=== PATIENT | female | born 1985 | race Caucasian/White ===

== ENCOUNTER 2023-02-10 21:14 | Emergency (ER) | payer BC ==
[2023-02-10 21:42] VITALS: BP 140/97; PULSE 57
[2023-02-10] MEDS ORDERED: diphenhydrAMINE 50 MG/ML SDV IVPUSH ONE (21:48)
[2023-02-10] MEDS ORDERED: Ondansetron 4 MG/2 ML SDV IVPUSH ONE (21:48)
[2023-02-10] MEDS ORDERED: Lactated Ringers 1,000 ML IV SCH (22:00)
[2023-02-10] MEDS ORDERED: Lactated Ringers 1,000 ML IV ONE (22:13)
[2023-02-10] MEDS ORDERED: Ketorolac 30 MG/ML SDV IVPUSH ONE (23:59)
[2023-02-11] MEDS ORDERED: Potassium Chloride 20 MEQ Tab.ER PO ONE (01:11)
== END 2023-02-11 01:31 | disposition home or self-care (01) ==
LOC: JD.ED 21:14
DX: G44.209 Tension-type headache, unspecified, not intractable (principal); Z91.048 Other nonmedicinal substance allergy status
CPT/HCPCS: 36415; 70450; 70496; 80053; 85025; 85610; 85730; 96361; 96374; 96375; 99284; A9270; J1200; J1885; J2405; J3360; J7120